=== PATIENT | female | born 1965 | race Caucasian/White ===

== ENCOUNTER 2020-04-12 22:41 | Emergency (ER) | payer MEDICAID ==
[~2020-04-12] VITALS: Ht 162.6 cm; Wt 88.8 kg
[2020-04-12 22:43] VITALS: BP 184/98
--- NOTE | 2020-04-13 00:58 | NUR ---
PT C/O CHRONIC SCIATICA PAIN AND TINGLING THAT HAS PROGRESSIVELY WORSENED IN THE LAST 2 DAYS. PT HAVING DIFFICULTY USING HER RIGHT LEG FOR AMBULATION. ALSO C/O HEADACHE. DENIES ANY FURTHER NEEDS OR CONCERNS AT THIS TIME.
[2020-04-13] MEDS ORDERED: HYDROmorphone 1 MG/ML, 1ML INJ IM STA (01:07)
[2020-04-13] MEDS ORDERED: DIAZEPAM 5 MG TABLET PO STA (01:07)
[2020-04-13] MEDS ORDERED: DIAZEPAM 5 MG TABLET ONE (01:12)
[2020-04-13] MEDS ORDERED: HYDROmorphone 1 MG/ML, 1ML INJ ONE (01:13)
--- NOTE | 2020-04-13 02:07 | NUR ---
REPORT TO AMAYA ZARCO.
[2020-04-13] MEDS ORDERED: PROMETHAZINE 25 MG/ML, 1ML ONE (02:13)
[2020-04-13] MEDS ORDERED: PROMETHAZINE 25 MG/ML, 1ML IM ONE (02:30)
== END 2020-04-13 02:43 | disposition home or self-care (01) ==
LOC: ED 04-13 02:38
DX: M51.16 Intervertebral disc disorders with radiculopathy, lumbar region (principal); G44.219 Episodic tension-type headache, not intractable
CPT/HCPCS: 96372; 99284; J1170; J2550; J7512

== ENCOUNTER 2020-06-06 04:27 | Emergency (ER) | payer MEDICAID ==
[~2020-06-06] VITALS: Ht 162.6 cm; Wt 90.3 kg
[2020-06-06] MEDS ORDERED: DIAZEPAM 5 MG/ML, 2ML ONE (05:24)
[2020-06-06] MEDS ORDERED: KETOROLAC 30 MG/1 ML ONE (05:24)
[2020-06-06] MEDS ORDERED: KETOROLAC 30 MG/1 ML IVPush ONE (05:30)
[2020-06-06] MEDS ORDERED: DIAZEPAM 5 MG/ML, 2ML IVPush ONE (05:30)
[2020-06-06 06:24] VITALS: BP 138/74
== END 2020-06-06 06:27 | disposition home or self-care (01) ==
LOC: ED 04:57
DX: M51.36 Other intervertebral disc degeneration, lumbar region (principal); M51.34 Other intervertebral disc degeneration, thoracic region; F17.210 Nicotine dependence, cigarettes, uncomplicated; Z88.1 Allergy status to other antibiotic agents
CPT/HCPCS: 72110; 96374; 96375; 99284; J1885; J3360; J7512